=== PATIENT | female | born 1965 | race Caucasian/White ===

== ENCOUNTER → 2020-09-28 | Outpatient (CLI) | payer OTHER ==
[~2020-09-28] MED LIST: B12INJ IM; CLONAZEPAM 1 MG1 M1 PO; COLACE100 MG PO; CONSTULOSE10 GM/152 PO; CYMBALTA30 MG PO; DEXTROSTAT10 MG PO; LAMICTAL PO; METHADONE HCL 110 MG PO; METHADONE HCL5 MG PO; NEURONTIN 300M300 M2 PO; VITAMIN D 5050000 I1 IM
== END ==
LOC: LAB 10:32
PROVIDERS: ATTEND Anesthesiology
DX: Z01.812 Encounter for preprocedural laboratory examination (principal); Z20.822 Contact with and (suspected) exposure to COVID-19